=== PATIENT | male | born 1985 | race Caucasian/White ===

== ENCOUNTER → 2017-11-12 | Emergency (ER) | payer MEDICARE, MEDICAID ==
[~2017-11-12] VITALS: Ht 188 cm; Wt 110.0 kg
[2017-11-12 11:07] VITALS: BP 136/68
== END | disposition home or self-care (01) ==
LOC: ER 11:04
DX: S92.422A Displaced fracture of distal phalanx of left great toe, initial encounter for closed fracture (principal); F12.10 Cannabis abuse, uncomplicated; Z59.0 Homelessness; Z56.0 Unemployment, unspecified; Z88.8 Allergy status to other drugs, medicaments and biological substances; W05.1XXA Fall from non-moving nonmotorized scooter, initial encounter; Y93.89 Activity, other specified; Y92.89 Other specified places as the place of occurrence of the external cause; Y99.9 Unspecified external cause status
CPT/HCPCS: 73660; 99284

== ENCOUNTER 2017-11-23 21:23 | Emergency (ER) | payer MEDICARE, MEDICAID ==
[~2017-11-23] VITALS: Ht 188 cm; Wt 101.0 kg
[~2017-11-23 21:23] MED LIST: BACDS PO; CEPH500C5 PO; LIT300C PO; OLAN10VI4 IM; PROP10TA10 PO; RISP1TAB3 PO
[2017-11-23 22:12] VITALS: BP 132/83
== END 2017-11-23 22:11 | disposition home or self-care (01) ==
LOC: ER 21:24
DX: Z02.89 Encounter for other administrative examinations (principal); F12.10 Cannabis abuse, uncomplicated; Z88.6 Allergy status to analgesic agent
CPT/HCPCS: 99284

== ENCOUNTER 2017-12-25 12:08 | Emergency (ER) | payer MEDICAID, MEDICARE, OTHER ==
[~2017-12-25] VITALS: Ht 188 cm; Wt 100.0 kg
[~2017-12-25 12:08] MED LIST changes: +AMOX-580 PO; -BACDS PO; -CEPH500C5 PO; -LIT300C PO; -OLAN10VI4 IM; -PROP10TA10 PO; -RISP1TAB3 PO
[2017-12-25] MEDS ORDERED: vancomycin/NS 1 GM ADD-VANTAGE 250 ML IV ONE (13:20)
[2017-12-25] MEDS ORDERED: piperacillin/tazo 3.375gm/50ml 50 ML IV ONE (13:20)
[2017-12-25] MEDS ORDERED: normal saline 1000ML IV soln IV ONE (13:20)
[2017-12-25 13:31] LABS: BASOPHILS % (AUTO) 0.5 % (0-1); EOSINOPHILS # (AUTO) 0.1 X10'3 (0-0.9); EOSINOPHILS % (AUTO) 2.2 % (0-6); HEMATOCRIT 35.6 % (42.0-52.0); HEMOGLOBIN 11.9 g/dl (14.0-17.9); LYMPHOCYTES # (AUTO) 1.6 X10'3 (1.1-4.8); LYMPHOCYTES % (AUTO) 28.7 % (21-51); MEAN CORPUSCULAR HEMOGLOBIN 28.9 PG (27.0-31.0); MEAN CORPUSCULAR HGB CONC 33.5 % (33.0-36.5); MEAN CORPUSCULAR VOLUME 86.4 FL (78-98); MEAN PLATELET VOLUME 7.8 FL (7.4-10.4); MONOCYTES # (AUTO) 0.4 X10'3 (0-0.9); MONOCYTES % (AUTO) 7.3 % (2-12); NEUTROPHILS # (AUTO) 3.5 X10'3 (1.8-7.7); NEUTROPHILS % (AUTO) 61.3 % (42-75); PLATELET COUNT 337 X10'3 (140-440); RED BLOOD COUNT 4.12 X10'6 (4.70-6.10); RED CELL DISTRIBUTION WIDTH 14.4 % (11.5-14.5); WHITE BLOOD COUNT 5.7 X10'3 (4.5-11.0)
[2017-12-25 13:45] LABS: ALANINE AMINOTRANSFERASE 20 U/L (12-78); ALBUMIN 3.2 G/DL (3.4-5.0); ALBUMIN/GLOBULIN RATIO 0.8 (1.1-1.5); ALKALINE PHOSPHATASE 129 IU/L (46-116); ANION GAP 10 (8-16); ASPARTATE AMINO TRANSFERASE 17 U/L (10-37); BILIRUBIN,TOTAL 0.4 MG/DL (0.1-1.0); BLOOD UREA NITROGEN 8 MG/DL (7-18); BUN/CREATININE RATIO 15.7 (5.4-32.0); CALCIUM 8.8 MG/DL (8.5-10.1); CHLORIDE 103 MMOL/L (99-107); CREATININE 0.51 MG/DL (0.60-1.10); GLUCOSE 88 MG/DL (70-104); MAGNESIUM 1.8 MG/DL (1.5-2.4); POTASSIUM 3.8 MMOL/L (3.5-5.1); SODIUM 139 MMOL/L (135-145); TOTAL CARBON DIOXIDE 26.5 MMOL/L (24-32); TOTAL PROTEIN 7.1 G/DL (6.4-8.2); eGFR > 90 ML/MIN
[2017-12-25] MEDS ORDERED: CEPH-572 PO (14:45)
[2017-12-25] MEDS ORDERED: SULF1TAB49 PO (14:45)
[2017-12-25 17:44] VITALS: BP 129/74
== END 2017-12-25 17:46 ==
LOC: ER 12:08 → EEVIPCON 12:08 → ER 17:46
DX: T81.30XA Disruption of wound, unspecified, initial encounter (principal); L03.115 Cellulitis of right lower limb; Z48.02 Encounter for removal of sutures; F12.90 Cannabis use, unspecified, uncomplicated; Z88.8 Allergy status to other drugs, medicaments and biological substances; Z98.890 Other specified postprocedural states; Z79.899 Other long term (current) drug therapy; Z59.0 Homelessness; Z56.0 Unemployment, unspecified
CPT/HCPCS: 36415; 80053; 83605; 83735; 84145; 85025; 87040; 87070; 87077; 87186; 96365; 96366; 96367; 99285; A6449; J2543; J3370; J7030

== ENCOUNTER 2021-01-12 08:04 | Emergency (ER) | payer MEDICARE, OTHER ==
[~2021-01-12] VITALS: Ht 190.5 cm; Wt 115.0 kg
[2021-01-12 09:16] LABS: BASOPHILS # (AUTO) 0.1 X10'3 (0-0.2); BASOPHILS % (AUTO) 0.4 % (0-1); EOSINOPHILS # (AUTO) 0.1 X10'3 (0-0.9); EOSINOPHILS % (AUTO) 0.4 % (0-6); HEMATOCRIT 41.1 % (42.0-52.0); HEMOGLOBIN 13.7 g/dl (14.0-17.9); LYMPHOCYTES # (AUTO) 1.3 X10'3 (1.1-4.8); LYMPHOCYTES % (AUTO) 8.7 % (21-51); MEAN CORPUSCULAR HEMOGLOBIN 28.7 PG (27.0-31.0); MEAN CORPUSCULAR HGB CONC 33.4 g/dL (33.0-36.5); MEAN CORPUSCULAR VOLUME 85.9 FL (78-98); MEAN PLATELET VOLUME 8.1 FL (7.4-10.4); MONOCYTES % (AUTO) 6.7 % (2-12); NEUTROPHILS # (AUTO) 12.9 X10'3 (1.8-7.7); NEUTROPHILS % (AUTO) 83.8 % (42-75); PLATELET COUNT 395 X10'3 (140-440); RED BLOOD COUNT 4.79 X10'6 (4.70-6.10); RED CELL DISTRIBUTION WIDTH 14.3 % (11.5-14.5); WHITE BLOOD COUNT 15.4 X10'3 (4.5-11.0)
[2021-01-12 09:26] LABS: ALANINE AMINOTRANSFERASE 29 U/L (12-78); ALBUMIN 4.1 G/DL (3.4-5.0); ALBUMIN/GLOBULIN RATIO 1.1 (1.1-1.5); ALKALINE PHOSPHATASE 102 IU/L (46-116); ANION GAP 12 (8-16); ASPARTATE AMINO TRANSFERASE 39 U/L (10-37); BILIRUBIN,TOTAL 1.4 MG/DL (0.1-1.0); BLOOD UREA NITROGEN 13 MG/DL (7-18); BUN/CREATININE RATIO 13.8 (5.4-32.0); CALCIUM 9.2 MG/DL (8.5-10.1); CHLORIDE 100 MMOL/L (99-107); CREATININE 0.94 MG/DL (0.60-1.10); ETHANOL < 0.010 GM/DL (0.0-0.010); GLUCOSE 143 MG/DL (70-104); SODIUM 137 MMOL/L (135-145); TOTAL CARBON DIOXIDE 24.9 MMOL/L (24-32); eGFR 90 ML/MIN
[2021-01-12 09:36] LABS: POTASSIUM 2.9 MMOL/L (3.5-5.1)
--- NOTE | 2021-01-12 10:04 | NUR ---
Received pt from main ER. Pt cooperative with admission routine and assessment. Skin check complete and pt changed into green scrubs. Pt BIB his brother for DTS which pt continues to endorse.
[2021-01-12] MEDS ORDERED: FLUO-12 PO (10:28)
[2021-01-12] MEDS ORDERED: QUET400T5 PO (10:28)
[2021-01-12] MEDS ORDERED: RISP2TAB97 PO (10:28)
[2021-01-12] MEDS ORDERED: LITH600C PO (10:28)
[2021-01-12] MEDS ORDERED: LITH150C8 PO (10:28)
--- NOTE | 2021-01-12 11:00 | NUR ---
Pt continues to be cooperative and was able to give urine sample. Pt currently lying on bed, quietly resting.
[2021-01-12 11:14] LABS: URINE AMPHETAMINE SCREEN POSITIVE (Neg); URINE BARBITUATE SCREEN NEGATIVE (Neg); URINE BENZODIAZEPINES SCREEN NEGATIVE (Neg); URINE CANNABINOID SCREEN NEGATIVE (Neg); URINE COCAINE SCREEN NEGATIVE (Neg); URINE METHADONE SCREEN NEGATIVE (Neg); URINE OPIATE SCREEN NEGATIVE (Neg); URINE PHENCYCLIDINE SCREEN NEGATIVE (Neg)
[2021-01-12] MEDS ORDERED: potassium Cl 20 mEq SR tablet PO STA (11:16)
[2021-01-12] MEDS ORDERED: lithium carbonate 150mg capsule PO SCH (11:33)
[2021-01-12 12:21] LABS: CLARITY,URINE CLEAR (Clear); COLOR,URINE YELLOW (Yellow); GLUCOSE, URINE NEGATIVE (Neg); KETONES,URINE NEGATIVE (Neg); LEUKOCYTE ESTERASE ,URINE NEGATIVE (Neg); NITRITES, URINE NEGATIVE (Neg); OCCULT BLOOD,URINE SMALL (Neg); PROTEIN,URINE TRACE mg/dl (Neg)
[2021-01-12 12:25] LABS: UA COLLECTION TYPE CLN CATCH MIDSTREAM
[2021-01-12 12:27] LABS: BACTERIA,URINE NONE SEEN /HPF (Neg); RBC,URINE 0-2 /HPF (0-2); WBC,URINE 0-4 /HPF (0-4)
[2021-01-12 12:28] LABS: MUCUS STRANDS NONE SEEN /LPF (Neg); SQUAMOUS EPITHELIAL CELL,UR FEW /LPF (FEW)
[2021-01-12] MEDS: FLUoxetine 20mg capsule PO SCH (12:31)
[2021-01-12] MEDS: lithium carbonate 150mg capsule PO SCH ×2 (12:31→19:24)
[2021-01-12] MEDS: risperiDONE 2mg tablet PO SCH (12:31)
--- NOTE | 2021-01-12 13:00 | NUR ---
Pt took medications and laid quietly in bed without complaints.
--- NOTE | 2021-01-12 15:00 | NUR ---
After eating lunch, pt fell asleep in bed. Pt up once to use the bathroom then returned to sleep.
--- NOTE | 2021-01-12 16:50 | NUR ---
PACKET FAXED TO [facility]
--- NOTE | 2021-01-12 17:00 | NUR ---
Pt sleeping without complaints or signs of distress.
--- NOTE | 2021-01-12 19:06 | NUR ---
One to one with the patient who was resting on his bed after eating 100% of his dinner. He stated that he has a headache and feels congested. He reports that he is feeling very depressed. He is very helpless and hopeless and stated that he has reason to live. He stated that last monday he was kicked out of [facility] and he now his homeless. He admits that he has not been taking his psychiatric medications "as I should" He stated he has not been having auditory hallucinations but he has been having visual hallucinations of "weird stuff" designs and faces. When asked if he had a plan to harm himself he replied, "The quickest way possible" He reports high anxiety. MD made aware of congestion and headache.
[2021-01-12] MEDS ORDERED: diphenhydrAMINE 25mg capsule PO ONE (19:15)
[2021-01-12] MEDS ORDERED: acetaminophen 325mg tablet PO ONE (19:15)
--- NOTE | 2021-01-12 19:15 | NUR ---
Covid swab sent to lab
--- NOTE | 2021-01-12 20:20 | NUR ---
The patient is resting on his bed. Reports headache improved and now only at a 2/10.
--- NOTE | 2021-01-12 20:21 | NUR ---
Negative covid results sent to [facility]
[2021-01-12] MEDS ORDERED: quetiapine fumarate ER 300mg tablet PO SCH (21:00)
[2021-01-12] MEDS ORDERED: QUETIAPINE 50 MG TAB.SR.24H PO SCH (21:00)
[2021-01-12] MEDS ORDERED: QUETIAPINE FUMARATE 400 MG PO SCH (21:00)
--- NOTE | 2021-01-12 21:16 | NUR ---
The patient appears to be sleeping
--- NOTE | 2021-01-12 22:42 | NUR ---
The patient appears to be sleeping
--- NOTE | 2021-01-13 00:04 | NUR ---
The patient appears to be sleeping
--- NOTE | 2021-01-13 01:42 | NUR ---
The patient appears to be sleeping
--- NOTE | 2021-01-13 03:17 | NUR ---
The patient is resting on his bed and appears to be sleeping restlessly
--- NOTE | 2021-01-13 04:33 | NUR ---
The patient appears to be sleeping
[2021-01-13 06:08] VITALS: BP 98/61
--- NOTE | 2021-01-13 08:40 | NUR ---
Pt being seen by [facility] worker Mirza
[2021-01-13] MEDS: risperiDONE 2mg tablet PO SCH (08:41)
[2021-01-13] MEDS: lithium carbonate 150mg capsule PO SCH (08:42)
[2021-01-13] MEDS: FLUoxetine 20mg capsule PO SCH (08:42)
== END 2021-01-13 13:49 | disposition home or self-care (01) ==
LOC: ER 08:04
DX: R45.851 Suicidal ideations (principal); Z20.822 Contact with and (suspected) exposure to COVID-19; F41.9 Anxiety disorder, unspecified; F31.9 Bipolar disorder, unspecified; F20.9 Schizophrenia, unspecified; F12.90 Cannabis use, unspecified, uncomplicated; F19.90 Other psychoactive substance use, unspecified, uncomplicated; Z87.440 Personal history of urinary (tract) infections; Z98.890 Other specified postprocedural states; Z72.89 Other problems related to lifestyle; Z56.0 Unemployment, unspecified; Z59.0 Homelessness; Z88.8 Allergy status to other drugs, medicaments and biological substances; Z79.899 Other long term (current) drug therapy
CPT/HCPCS: 36415; 80053; 80305; 80320; 81001; 85025; 87635; 99285; C9803; Q0163